=== PATIENT | male | born 1940 | race Caucasian/White ===

== ENCOUNTER 2017-02-07 12:32 | Emergency (ER) | payer MEDICARE ==
[~2017-02-07] VITALS: Ht 180.3 cm; Wt 87.0 kg
[2017-02-07 12:40] VITALS: BP 178/84; PULSE 76; RESP 16; TEMP 97.9; O2SAT 99
[2017-02-07] MEDS ORDERED: TOPR50TA PO (12:49)
[2017-02-07] MEDS ORDERED: FLUT1SPR5 EACH NARE (12:49)
[2017-02-07] MEDS ORDERED: BENA20TA PO (12:49)
[2017-02-07] MEDS ORDERED: AMLO5TAB2 PO (12:49)
[2017-02-07 13:25] VITALS: O2SAT 97
[2017-02-07] MEDS ORDERED: SODIUM CHLORIDE 0.9% FLUSH 5 ML FLUSH IVF PRN (13:30)
[2017-02-07 13:33] LABS: AUTOMATED NEUTROPHIL # 2.8 TH/MM3 (1.8-7.7); BASOPHIL % 1.1 % (0.0-2.0); EOSINOPHIL # 0.1 TH/MM3 (0-0.4); EOSINOPHIL % 2.7 % (0.0-4.0); HEMATOCRIT 41.1 % (39.0-51.0); HEMO FLAGS DIFF FINAL; LYMPH % 26.2 % (9.0-44.0); LYMPHOCYTE # 1.2 TH/MM3 (1.0-4.8); MEAN CELL VOLUME 95.9 FL (80.0-100.0); MEAN CORPUSCULAR HEMOGLOBIN 33.4 PG (27.0-34.0); MEAN CORPUSCULAR HGB CONC 34.8 % (32.0-36.0); MONO % 9.9 % (0.0-8.0); NEUT % 60.1 % (16.0-70.0); PLATELET COUNT 217 TH/MM3 (150-450); RED BLOOD COUNT 4.28 MIL/MM3 (4.50-5.90); RED CELL DISTRIBUTION WIDTH 12.9 % (11.6-17.2); WHITE BLOOD COUNT 4.5 TH/MM3 (4.0-11.0)
--- NOTE | 2017-02-07 13:37 | PD ---
HPI . Dizziness Chief Complaint: Dizziness Time Seen by Provider: 13:31 Travel History International Travel<30 days: No Contact w/Intl Traveler<30days: No Traveled to known affect area: No History of Present Illness HPI Patient presents with a 5 day history of dizziness. He describes lightheadedness when she is exacerbated by standing and improved by sitting. He states he had a single episode about a month ago but then had no further episodes until 5 days ago. He denies any associated symptoms such as chest pain , nausea, diaphoresis, shortness of breath, blurred vision. He does state that he had some paresthesias in the left arm and left side of face today. It lasted about 5 minutes. This was the first time that he had paresthesias. Patient reports frequent monitoring of his blood pressure. He is taking it every few minutes. He is concerned that his blood pressure fluctuates. [id number]: Head QUALITY: Lightheadedness DURATION: 5 days TIMING: Comes and goes CONTEXT: History of hypertension MODIFYING FACTORS: Exacerbated by standing and improved by sitting ASSOCIATED SYMPTOMS: Brief episode of left-sided paresthesias today. PFSH Past Medical History Hypertension: Yes Tetanus Vaccination: < 5 Years Influenza Vaccination: Yes Past Surgical History Surgical History: No Previous Surgery Social History Alcohol Use: Yes (2-3 mixed drinks daily) Tobacco Use: No Substance Use: No Allergies-Medications (Allergen,Severity, Reaction): Coded Allergies: No Known Allergies (Unverified , 02/07/17) Reported Meds & Prescriptions Reported Meds & Active Scripts Active Reported Benazepril (Benazepril HCl) 20 Mg Tab 20 Mg PO DAILY Amlodipine (Amlodipine Besylate) 5 Mg Tab 5 Mg PO DAILY Toprol XL (Metoprolol Succinate) 50 Mg Tab 50 Mg PO DAILY Flonase Nasal [place] (Fluticasone Nasal [place]) 50 Mcg/Act [place] 100 Mcg EACH NARE DAILY PRN Review of Systems Except as stated in HPI: all other systems reviewed are Neg General / Constitutional: No: Fever, Chills Eyes: No: Diploplia, Blurred Vision HENT: Positive: Lightheadedness, No: Headaches Cardiovascular: No: Chest Pain or Discomfort Respiratory: No: Shortness of Breath Gastrointestinal: No: Nausea, Vomiting Neurologic: Positive: Weakness, Dizziness, Paresthesia, No: Syncope Physical Exam Narrative GENERAL: Awake and alert and in no acute distress. Unusually obsessed with his blood pressure. SKIN: Warm and dry. HEAD: Atraumatic. Normocephalic. EYES: Pupils equal and round. Extraocular movements are intact. ENT: No nasal bleeding or discharge. Mucous membranes pink and moist. NECK: Trachea midline. Neck is supple. CARDIOVASCULAR: Regular rate and rhythm. Heart sounds are normal. RESPIRATORY: No accessory muscle use. Lungs are clear with full air movement throughout. GASTROINTESTINAL: Abdomen soft, non-tender, nondistended. MUSCULOSKELETAL: No obvious deformities. No edema. NEUROLOGICAL: Awake and alert. No obvious cranial nerve deficits. Motor grossly within normal limits. Normal speech. Hbmzqt-[id number]-[id number] exam is intact. PSYCHIATRIC: Appropriate mood and affect; insight and judgment normal. Data Data Last Documented VS Vital Signs Date Time Temp Pulse Resp B/P Pulse Ox O2 Delivery O2 Flow Rate FiO2 02/07/17 15:04 58 16 143/65 57 16 149/67 66 16 138/71 02/07/17 13:25 97 Room Air 02/07/17 12:40 97.9 Orders Complete Blood Count With Diff (02/07/17 13:19) Comprehensive Metabolic Panel (02/07/17 13:19) Magnesium (Mg) (02/07/17 13:19) Ckmb (Isoenzyme) Profile (02/07/17 13:19) Troponin I (02/07/17 13:19) Urinalysis - C+S If Indicated (02/07/17 13:19) Ecg Monitoring (02/07/17 13:19) Iv Access Insert/Monitor (02/07/17 13:19) Oximetry (02/07/17 13:19) Sodium Chloride 0.9% Flush (Ns Flush) (02/07/17 13:30) Ct Brain W/O Iv Contrast(Rout) (02/07/17 13:31) Electrocardiogram (02/07/17 12:38) Orthostatic Vital Signs (02/07/17 14:52) Labs Laboratory Tests Test 02/07/17 02/07/17 13:25 14:28 White Blood Count 4.5 TH/MM3 Red Blood Count 4.28 MIL/MM3 Hemoglobin 14.3 GM/DL Hematocrit 41.1 % Mean Corpuscular Volume 95.9 FL Mean Corpuscular Hemoglobin 33.4 PG Mean Corpuscular Hemoglobin 34.8 % Concent Red Cell Distribution Width 12.9 % Platelet Count 217 TH/MM3 Mean Platelet Volume 8.3 FL Neutrophils (%) (Auto) 60.1 % Lymphocytes (%) (Auto) 26.2 % Monocytes (%) (Auto) 9.9 % Eosinophils (%) (Auto) 2.7 % Basophils (%) (Auto) 1.1 % Neutrophils # (Auto) 2.8 TH/MM3 Lymphocytes # (Auto) 1.2 TH/MM3 Monocytes # (Auto) 0.4 TH/MM3 Eosinophils # (Auto) 0.1 TH/MM3 Basophils # (Auto) 0.0 TH/MM3 CBC Comment DIFF FINAL Differential Comment Sodium Level 140 MEQ/L Potassium Level 4.7 MEQ/L Chloride Level 103 MEQ/L Carbon Dioxide Level 29.4 MEQ/L Anion Gap 8 MEQ/L Blood Urea Nitrogen 17 MG/DL Creatinine 0.96 MG/DL Estimat Glomerular Filtration 76 ML/MIN Rate Random Glucose 107 MG/DL Calcium Level 8.8 MG/DL Magnesium Level 2.2 MG/DL Total Bilirubin 0.5 MG/DL Aspartate Amino Transf 15 U/L (AST/SGOT) Alanine Aminotransferase 22 U/L (ALT/SGPT) Alkaline Phosphatase 66 U/L Total Creatine Kinase 92 U/L Troponin I LESS THAN 0.02 NG/ML Total Protein 6.9 GM/DL Albumin 3.6 GM/DL Urine Collection Type CLEAN CATCH Urine Color YELLOW Urine Turbidity CLEAR Urine pH 6.0 Urine Specific [place] 1.009 Urine Protein NEG mg/dL Urine Glucose (UA) NEG mg/dL Urine Ketones NEG mg/dL Urine Occult Blood NEG Urine Nitrite NEG Urine Bilirubin NEG Urine Leukocyte Esterase NEG Urine Squamous Epithelial 0-5 /hpf Cells Urine Amorphous Sediment FEW Microscopic Urinalysis Comment CULT NOT INDICATED Urine Collection Time 1425 MDM Medical Decision Making Medical Screen Exam Complete: Yes Emergency Medical Condition: Yes Interpretation(s) EKG shows a sinus rhythm with a right bundle branch block. Differential Diagnosis Differential diagnosis of dizziness includes but is not limited to vertigo, dehydration, acute blood loss, sepsis, ACS Narrative Course Patient presents for the evaluation of dizziness. He describes orthostasis. CBC & BMP Diagram 02/07/17 13:25 Cardiac enzymes are negative. Last Impressions Head CT 02/07/17 1331 Signed Impressions: Service Date/Time: Tuesday, February 07, 2017 13:44 - CONCLUSION: Negative noncontrast CT. Jason Cisneros MD U/A is neg. Orthostatic vital signs are negative. Diagnosis Primary Impression: Dizziness Referrals: Primary Care Physician 1 week Patient Instructions: Dizziness (ED), General Instructions Disposition: 01 DISCHARGE HOME Condition: Stable Pily Lynn MD Feb 07, 2017 13:37
[2017-02-07 13:42] LABS: CHLORIDE 103 MEQ/L (98-107); POTASSIUM 4.7 MEQ/L (3.5-5.1); SODIUM (NA) 140 MEQ/L (136-145)
[2017-02-07 13:46] LABS: ANION GAP 8 MEQ/L (5-15); BICARBONATE 29.4 MEQ/L (21.0-32.0); BLOOD UREA NITROGEN 17 MG/DL (7-18); MAGNESIUM 2.2 MG/DL (1.5-2.5)
[2017-02-07 13:49] LABS: ALT (GPT) 22 U/L (12-78); AST (GOT) 15 U/L (15-37); GLOMERULAR FILTRATION RATE 76 ML/MIN (>89)
[2017-02-07 13:50] LABS: TOTAL BILIRUBIN ADULT 0.5 MG/DL (0.2-1.0)
[2017-02-07 13:52] LABS: ALKALINE PHOSPHATASE 66 U/L (45-117)
[2017-02-07 13:59] LABS: CREATINE KINASE 92 U/L (39-308)
--- NOTE | 2017-02-07 14:16 | RADHPO ---
EXAM DATE/TIME: 02/07/2017 13:44 [facility] COMPARISON: No previous studies available for comparison. INDICATIONS : Dizziness and hypertension. RADIATION DOSE: 61.34 CTDIvol (mGy) MEDICAL HISTORY : None SURGICAL HISTORY : None. ENCOUNTER: Initial ACUITY: 4 - 6 days PAIN SCALE: 0/10 LOCATION: cranial TECHNIQUE: Multiple contiguous axial images were obtained of the head. Using automated exposure control and adj ustment of the mA and/or kV according to patient size, radiation dose was kept as low as reasonably a chievable to obtain optimal diagnostic quality images. FINDINGS: CEREBRUM: The ventricles are normal for age. No evidence of midline shift, mass lesion, hemorrhage or acute in farction. No extra-axial fluid collections are seen. POSTERIOR FOSSA: The cerebellum and brainstem are intact. The 4th ventricle is midline. The cerebellopontine angle i s unremarkable. EXTRACRANIAL: The visualized portion of the orbits is intact. SKULL: The calvaria is intact. No evidence of skull fracture. CONCLUSION: Negative noncontrast CT. Jason Cisneros MD on February 07, 2017 at 14:13 Board Certified Radiologist. This report was verified electronically.
[2017-02-07 14:36] LABS: BLOOD, URINE NEG (NEG); GLUCOSE,URINE NEG (NEG); KETONE, URINE NEG (NEG); NITRITE,URINE NEG (NEG)
[2017-02-07 14:45] LABS: CULTURE IF INDICATED CULT NOT INDICATED; METHOD OF COLLECTION CLEAN CATCH; SQUAMOUS EPITHELIAL CELL URINE 0-5 /hpf (0-5); URINE COLOR YELLOW (YELLW/STRAW)
[2017-02-07 14:46] LABS: COMMENT (UR) CULT NOT INDICATED
[2017-02-07 15:04] VITALS: BP_SYST 138; BP_SYST 143; BP_SYST 149; BP_DIAS 65; BP_DIAS 67; BP_DIAS 71; RESP 16
--- NOTE | 2017-02-07 15:24 | EKG ---
Date Performed: 02/07/2017 Time Performed: 12:38:56 PTAGE: 76 years EKG: Sinus rhythm with PAC(s) with borderline 1st degree A-V block. 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
[2017-02-07 15:40] VITALS: BP 139/67
== END 2017-02-07 15:43 | disposition home or self-care (01) ==
LOC: PHED 12:32
DX: R42 Dizziness and giddiness (principal); I10 Essential (primary) hypertension; R20.9 Unspecified disturbances of skin sensation; I45.2 Bifascicular block; I44.0 Atrioventricular block, first degree; R94.31 Abnormal electrocardiogram [ECG] [EKG]
CPT/HCPCS: 70450; 80053; 81001; 82550; 83735; 84484; 85025; 93005